=== PATIENT | female | born 2005 | race Caucasian/White ===

== ENCOUNTER 2023-01-28 10:53 | Emergency (ER) | payer MEDICAID ==
[~2023-01-28] VITALS: Ht 162.6 cm; Wt 81.6 kg
[2023-01-28 11:54] VITALS: BP_SYST 120
[2023-01-28 15:34] LABS: BILIRUBIN,URINE NEGATIVE (NEGATIVE); BLOOD, URINE NEGATIVE (NEGATIVE); CLARITY/URINE SL CLOUDY (CLEAR); COLOR,URINE YELLOW (YELLOW); GLUCOSE,URINE NEGATIVE (NEGATIVE); KETONES,URINE NEGATIVE (NEGATIVE); LEUKOCYTE ESTERASE ,URINE NEGATIVE (NEGATIVE); NITRITE, URINE NEGATIVE (NEGATIVE); PROTEIN URINE NEGATIVE (NEGATIVE); UROBILINOGEN,URINE 0.2 (0.2-1.0)
--- NOTE | 2023-01-28 15:42 | NUR ---
Patient left without being seen.
== END 2023-01-28 15:42 | disposition left against medical advice (07) ==
LOC: SED 10:53
DX: R11.0 Nausea (principal); Z53.21 Procedure and treatment not carried out due to patient leaving prior to being seen by health care provider
CPT/HCPCS: 81003; 81025; 99281